=== PATIENT | male | born 1980 | race Two or more races ===

== ENCOUNTER 2023-03-26 18:34 | Emergency (ER) | payer BC, SELFPAY ==
[2023-03-26 18:46] VITALS: BP 157/88; PULSE 87; RESP 16; TEMP 36.9; O2SAT 99; BMI 24.3
--- NOTE | 2023-03-26 18:51 | ECG_ITS ---
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 Measurements Intervals [place] Rate: 81 P: 80 DC: 173 QRS: 67 QRSD: 94 T: 55 QT: 350 QTc: 408 Interpretive Statements SINUS RHYTHM No previous ECG available for comparison Electronically Signed On 03-27-2023 21:15:32 CDT by Theresa Encarnacion M.D. [id number]
--- NOTE | 2023-03-26 18:54 | XRR_ITS ---
PROCEDURE INFORMATION: Exam: XR Chest Exam date and time: 03/26/2023 7:45 PM Age: 42 years old Clinical indication: Pain; Chest pressure; Additional info: Cp TECHNIQUE: Imaging protocol: Radiologic exam of the chest. Views: 1 view. COMPARISON: CT kidney stone [id number] 02/24/2017 3:23 PM FINDINGS: Lungs: Unremarkable. No consolidation. Pleural spaces: Unremarkable. No pleural effusion. No pneumothorax. Heart/Mediastinum: Unremarkable. No cardiomegaly. Bones/joints: Unremarkable. XR/XR chest 1V portable [id number] IMPRESSION: No acute findings.
[2023-03-26 19:15] LABS: Basophils # 0.1 10^3/uL (0.0-0.1); Basophils % 0.9 %; Eosinophils # 0.5 10^3/uL (0.0-0.8); Eosinophils % 8.1 %; Hematocrit 42.2 % (42.0-52.0); Hemoglobin 13.7 g/dL (11.7-16.6); Lymphocytes # 2.2 10^3/uL (0.8-4.8); Lymphocytes % 34.4 %; Mean Corpuscular HGB Conc 32.5 g/dL (30.0-36.0); Mean Corpuscular Hemoglobin 29.4 pg (28.0-34.0); Mean Corpuscular Volume 90.6 fl (80-94); Mean Platelet Volume 9.6 fL (7.4-10.4); Monocytes # 0.5 10^3/uL (0.2-0.9); Monocytes % 7.1 %; Neutrophils # 3.18 10^3/uL (1.8-7.7); Neutrophils % 49.3 %; Nucleated Red Blood Cells % 0 %; Platelet Count 238 10^3/cmm (130-400); Red Blood Count 4.66 10^6/uL (4.1-5.3); Red Cell Distribution Width 13.5 % (12.1-15.1); White Blood Count 6.5 10^3/uL (4.0-10.0)
[2023-03-26 19:21] VITALS: BP 153/89; PULSE 74; TEMP 37; O2SAT 98
[2023-03-26 19:37] LABS: Alanine Aminotransferase 36 U/L (0-41); Albumin Level 4.3 g/dL (3.5-5.2); Alkaline Phosphatase 53 U/L (40-130); Blood Urea Nitrogen 18 mg/dL (6-20); Calcium 9.2 mg/dL (8.5-10.5); Carbon Dioxide 28 mmol/L (22-29); Chloride 100 mmol/L (98-107); Globulin 3.1 g/dL (1.3-4.6); Glomerular Filtration Rate 72.7 mL/min (90-130); Glucose 105 mg/dL (65-115); Lipase 34 U/L (13-60); Osmolality Calculated 284 mOsm/kg (285-295); Sodium 136 mmol/L (136-145); Total Bilirubin 0.2 mg/dL (0.15-1.2); Total Protein 7.4 g/dL (6.6-8.7)
[2023-03-26 19:38] LABS: Anion Gap 12.4 (5-19); Aspartate Amino Transferase 90 U/L (0-40); Potassium 4.4 mmol/L (3.5-5.1); Troponin(5th) Baseline 6 ng/L (0-15)
--- NOTE | 2023-03-26 20:49 | XRR_ITS ---
PROCEDURE INFORMATION: Exam: XR Cervical Spine Exam date and time: 03/26/2023 8:53 PM Age: 42 years old Clinical indication: Neck pain; Additional info: Neck valdes, no trauma, rue parasthesia TECHNIQUE: Imaging protocol: Radiologic exam of the cervical spine. Views: 2 or 3 views. COMPARISON: CR (CHEST, ) 03/26/2023 7:45 PM FINDINGS: Bones/joints: There is degenerative change with narrowing of the C5-C6 disc space. No fracture is identified Soft tissues: Prevertebral soft tissues are unremarkable. XR/XR cervical spine 3V* [id number] IMPRESSION: Degenerative changes in the cervical spine. No fracture is identified.
--- NOTE | 2023-03-26 20:50 | W.ED.EXTPRO ---
HPI - Extremity Problem General: Chief complaint: Extremity Injury, Upper Stated complaint: numbness right arm Time Seen by Provider: 03/26/23 20:43 History of Present Illness: Presents to the ER with complaints of over the last 3 to 4 days having numbness tingling in his right arm from his shoulder down to his index finger. Patient's also had a heartburn type pain that goes through to his back. Patient is never had these before. The numbness and tingling in his right arm is reproducible with positional changes. Patient has no cardiac history. Review of Systems General: Reports: 10 or more systems reviewed and unremarkable except in HPI and below PFSH ED PFSH: Surgical History No history of previous surgery Social History Smoking and tobacco status: never smoked Alcohol intake: never Substance/Drug Use: never Current occupation: Works at [employer] Additional social history: Divehi speaking primarily. From [facility] initially. Moved to [place]. Now lives in [place]. Physical Exam Const: COMMON NORMALS: no acute distress, average body habitus, patient oriented x3, no limitations, healthy appearing, alert and well nourished HENMT: COMMON NORMALS: normocephalic, atraumatic, hearing grossly normal bilaterally, external ears normal, Normal external nose present and moist oral mucous membranes HEAD & SCALP: normocephalic and atraumatic NOSE: Normal external nose present EXTERNAL EAR: Yes external ears normal Eye: COMMON NORMALS: Equal, round and reactive pupils present, EOMs intact bilaterally, conjunctivae normal and no scleral icterus CONJUNCTIVA: Yes conjunctivae normal PUPIL: Yes Equal, round and reactive pupils present Neck/C-Spine: COMMON NORMALS: full ROM, no lymphadenopathy, supple, no meningeal signs, no JVD and Thyroid normal THYROID: Thyroid normal Chest: COMMONS NORMALS: normal inspection of the chest and normal palpation of entire chest wall Resp: COMMON NORMALS: normal respiratory effort, No retractions, No use of accessory muscles and clear to auscultation bilaterally AUSCULTATION: clear to auscultation bilaterally Cardio: COMMON NORMALS: no JVD, regular rate, regular rhythm, S1 normal heart sound present, S2 normal heart sound present, No gallops present (Cardio), No clicks present (Cardio), No murmurs present (Cardio) and No rub (Cardio) RATE: regular rate RHYTHM: regular rhythm HEART SOUNDS: S1 normal heart sound present and S2 normal heart sound present GI: COMMON NORMALS: Normal to inspection, nondistended, normoactive bowel sounds present, Soft to palpation, non-tender, No hepatosplenomegaly present and no masses PALPATION: Yes Soft to palpation and Yes No hepatosplenomegaly present : COMMON NORMALS: Yes no CVA tenderness BLADDER/KIDNEY EXAM: Yes no CVA tenderness Back/Pelvis: COMMON NORMALS: no CVA tenderness Neuro: COMMON NORMALS: patient oriented x3 SENSORIUM/ORIENTATION: Yes alert MENINGEAL SIGNS: Yes no meningeal signs Course Vital Signs: Vital signs: Vital Signs Temperature 98.6 F 03/26/23 19:21 Pulse Rate 74 03/26/23 19:21 Respiratory Rate 16 03/26/23 18:46 Blood Pressure 153/89 03/26/23 19:21 Pulse Oximetry 98 03/26/23 19:21 Oxygen Delivery Me thod Nasal Cannula 03/26/23 19:21 MDM - Extremity (Nontraumatic) Medical Decision Making Presented to the ER with complaints of numbness in his right arm. Patient states has been going off and on numb with positional changes for about the last 3 to 4 days. Imaging was obtained which showed degenerative changes in the C-spine especially in C5-6. Lab work was obtained which was essentially benign except for elevated AST of 90. These results was explained to the patient and his . Patient be discharged home to follow-up with his PCP for further evaluation and treatment of the arthritis in his neck and his paresthesia. Differential Diagnosis Unlikely herpes zoster, gout, cellulitis, superficial thrombophlebitis, deep venous thrombosis of upper extremity, lower extremity edema or deep vein thrombosis of lower extremity Medical Records I reviewed the patient's medical records. Lab Data I reviewed the patient's lab results. 03/26/23 19:08 03/26/23 19:08 Radiology Impressions Chest X-Ray 03/26/23 18:54 IMPRESSION: No acute findings. Cervical Spine X-Ray 03/26/23 20:49 IMPRESSION: Degenerative changes in the cervical spine. No fracture is identified. Laboratory Results WBC 6.5 10^3/uL (4.0-10.0) 03/26/23 19:08 RBC 4.66 10^6/uL (4.1-5.3) 03/26/23 19:08 Hgb 13.7 g/dL (11.7-16.6) 03/26/23 19:08 Hct 42.2 % (42.0-52.0) 03/26/23 19:08 MCV 90.6 fl (80-94) 03/26/23 19:08 MCH 29.4 pg (28.0-34.0) 03/26/23 19:08 MCHC 32.5 g/dL (30.0-36.0) 03/26/23 19:08 RDW 13.5 % (12.1-15.1) 03/26/23 19:08 Plt Count 238 10^3/cmm (130-400) 03/26/23 19:08 MPV 9.6 fL (7.4-10.4) 03/26/23 19:08 Neut % (Auto) 49.3 % 03/26/23 19:08 Lymph % (Auto) 34.4 % 03/26/23 19:08 Petroleum % (Auto) 7.1 % 03/26/23 19:08 Eos % (Auto) 8.1 % 03/26/23 19:08 Baso % (Auto) 0.9 % 03/26/23 19:08 Neut # (Auto) 3.18 10^3/uL (1.8-7.7) 03/26/23 19:08 Lymph # (Auto) 2.2 10^3/uL (0.8-4.8) 03/26/23 19:08 Petroleum # (Auto) 0.5 10^3/uL (0.2-0.9) 03/26/23 19:08 Eos # (Auto) 0.5 10^3/uL (0.0-0.8) 03/26/23 19:08 Baso # (Auto) 0.1 10^3/uL (0.0-0.1) 03/26/23 19:08 Nucleated RBC % (auto) 0 % 03/26/23 19:08 Nucleated RBCs # 0.0 /100WBC 03/26/23 19:08 Sodium 136 mmol/L (136-145) 03/26/23 19:08 Potassium 4.4 mmol/L (3.5-5.1) 03/26/23 19:08 Chloride 100 mmol/L (98-107) 03/26/23 19:08 Carbon Dioxide 28 mmol/L (22-29) 03/26/23 19:08 Anion Gap 12.4 (5-19) 03/26/23 19:08 BUN 18 mg/dL (6-20) 03/26/23 19:08 Creatinine 1.1 mg/dL (0.7-1.2) 03/26/23 19:08 GFR Calculation 72.7 mL/min (90-130) L 03/26/23 19:08 Glucose 105 mg/dL (65-115) 03/26/23 19:08 Calculated Osmolality 284 mOsm/kg (285-295) L 03/26/23 19:08 Calcium 9.2 mg/dL (8.5-10.5) 03/26/23 19:08 Total Bilirubin 0.2 mg/dL (0.15-1.2) 03/26/23 19:08 AST 90 U/L (0-40) H 03/26/23 19:08 ALT 36 U/L (0-41) 03/26/23 19:08 Alkaline Phosphatase 53 U/L (40-130) 03/26/23 19:08 Troponin T Baseline 6 ng/L (0-15) 03/26/23 19:08 Troponin T 120 Minute 6.00 ng/L (0-15) 03/26/23 21:01 Delta Troponin T 0 ABS# (0-10) 03/26/23 21:01 Total Protein 7.4 g/dL (6.6-8.7) 03/26/23 19:08 Albumin 4.3 g/dL (3.5-5.2) 03/26/23 19:08 Globulin 3.1 g/dL (1.3-4.6) 03/26/23 19:08 Lipase 34 U/L (13-60) 03/26/23 19:08 EKG Data EKG 1: I personally reviewed and interpreted this EKG as follows: EKG interpretation date: 03/26/23 EKG interpretation time: 18:51 Prior EKG tracings: not available for review Interpretation: EKG showed normal sinus rhythm with rate of 81 bpm, AR interval 173, QRS 94, QTc of 408, no ST-T wave change EKG 2: I personally reviewed and interpreted this EKG as follows: EKG interpretation date: 03/26/23 EKG interpretation time: 20:50 Prior EKG tracings: available for review Interpretation: EKG showed normal sinus rhythm, ventricular rate 72 bpm, AR interval 179, QRS duration 101, QTc of 385, no ST-T wave changes Discharge Plan Discharge Patient Disposition: Home Clinical Impression: Cervical spine arthritis, Paresthesia of arm Condition: Stable Prescriptions: No Action montelukast 10 mg tablet 10 mg PO DAILY Qty: 30 6RF omeprazole 40 mg capsule,delayed release(DR/EC) 40 mg PO DAILY Qty: 30 6RF triamcinolone acetonide 0.1 % cream 1 applic topical DAILY PRN (Reason: itching) Qty: 30 6RF Discharge Orders: Discharge ED (Routine); Ordered 03/26/23 Ordered By: Jose Daniel Diego Referrals: Montez Martin MD [Primary Care Provider] - 1 week Patient Instructions: Osteoarthritis (DC), Paresthesia (ED) Activity Restrictions/Additional Instructions: Follow-up with your PCP in the next 7 days. You may benefit from further evaluation testing and/or referral. 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
--- NOTE | 2023-03-26 20:55 | ECG_ITS ---
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 Measurements Intervals [place] Rate: 72 P: 79 LA: 179 QRS: 72 QRSD: 101 T: 62 QT: 361 QTc: 396 Interpretive Statements SINUS RHYTHM Compared to ECG 03/26/2023 18:55:44 No significant changes Electronically Signed On 03-27-2023 21:34:38 CDT by Theresa Encarnacion M.D. [id number]
[2023-03-26 21:45] LABS: Troponin 5 2HR Delta 0 ABS# (0-10)
[2023-03-26 22:18] VITALS: BP 153/89; PULSE 74; RESP 16; TEMP 37; O2SAT 98
== END 2023-03-26 22:18 | disposition home or self-care (01) ==
PROVIDERS: Emergency Medicine; Emergency Provider Emergency Medicine; PCP Family Medicine
DX: M47.812 Spondylosis without myelopathy or radiculopathy, cervical region (principal); R20.2 Paresthesia of skin
CPT/HCPCS: 36415; 71045; 72040; 80053; 83690; 84484; 85025; 93005; 99285